=== PATIENT | male | born 1945 | race Caucasian/White ===

== ENCOUNTER → 2019-04-08 07:35 | Outpatient (CLI) | payer MEDICARE, OTHER, SELFPAY ==
--- NOTE | 2019-04-08 | DI.ECHO.S_ITS ---
[facility]---------+ [facility] +---------+ : : [address] : [address] [address] : : : : [id number] : : : : Phone: [phone]---------+ Echocardiogram Report + + :Name: RODOLFO BARNETT Study Date: 04/08/2019 Height: 72 in : :[facility] Weight: 238 lb : : Gender: Male BSA: 2.3 m2 : :: 1945 Age: 73 yrs BP: 150/80 mmHg: :Reason For Study: CAD : : Performed By: Radha Kumar : :Referring: SRINI PALACIOS : + + Interpretation Summary 1) Normal left ventricular size and thickness with low normal systolic function (EF 50-55%). 2) The mid to apical anteroseptum, the apical inferoseptum, and the apex are akinetic. 3) No significant valvular abnormalities. 4) Compared to the Echo done 02/04/2009, LVEF has improved from 45% to 50-55% on this study. Procedure: A two-dimensional transthoracic echocardiogram with color flow and Doppler was performed. The study quality was technically difficult. Comparison is made with the echocardiogram of 02-04-09. A contrast injection of Definity was performed to improve assessment of LV function. The patient was in normal sinus rhythm during the exam. Left Ventricle: There is normal left ventricular wall thickness. The left ventricle is normal in size. Proximal septal thickening is noted. The ejection fraction is estimated to be 50-55%. The mid to apical anteroseptum, the apical inferoseptum, and the apex are akinetic. Right Ventricle: The right ventricle grossly appears normal in size with probable normal systolic function. Atria: The left atrial size is normal. Right atrial size is normal. The interatrial septum is intact with no evidence for an atrial septal defect. Mitral Valve: The mitral valve is normal in structure and function. There is no mitral regurgitation noted. Aortic Valve: The aortic valve opens well. There is no aortic valve stenosis. No aortic regurgitation is present. Tricuspid Valve: The tricuspid valve is normal in structure and function. There is a trace or physiologic amount of tricuspid regurgitation. Pulmonic Valve: The pulmonic valve is not well visualized. Great Vessels: The aortic root is normal size. The ascending aorta is at the upper limits of normal in size. The aortic arch is normal in size. Inspiratory collapse cannot be assessed because of mechanical ventilation, thus CVP cannot be estimated.. Pericardium/ Pleura There is no pericardial effusion. There is no pleural effusion. MMode/2D Measurements & Calculations LVIDd: 6.0 cm Ao root diam: 3.9 cm LVIDs: 3.9 cm Aortic Jxn: 3.1 cm FS: 34.1 % asc Aorta Diam: 3.7 cm IVSd: 1.1 cm Ao Arch Diam (Prox Trans): 2.7 cm LVPWd: 0.90 cm LV fernández. diameter/BSA (cm/m^2): 2.6 LV sys. diameter/BSA (cm/m^2): 1.7 LA dimension: 5.0 cm RA long axis: 5.3 cm LA A2 area: 18.5 cm2 RA area: 18.8 cm2 LA A4 area: 19.0 cm2 RA vol: 56.9 ml LA length (vol): 4.8 cm RA : 24.8 ml/m2 LA vol: 61.7 ml IVC diam: 1.3 cm LA vol index: 26.9 ml/m2 Doppler Measurements & Calculations Ao V2 max: 117.2 cm/sec MV E max doug: 62.3 cm/sec Ao V2 mean: 81.1 cm/sec MV A max doug: 96.0 cm/sec Ao max P.5 mmHg MV E/A: 0.65 Ao mean P.0 mmHg Med Peak E' Doug: 5.8 cm/sec Ao V2 VTI: 24.7 cm E/E' med: 10.8 Lat Peak E' Doug: 7.9 cm/sec E/E' lat: 7.9 E/e' average: 9.3 MV dec time: 0.15 sec MV P1/2t: 44.5 msec MV P1/2t max doug: 62.6 cm/sec MVA(P1/2t): 4.9 cm2 Reading Physician:10:42 AM
--- NOTE | 2019-04-08 14:50 | PM.TREADMILL ---
Cardiac Stress Test Report Referral & Results Date Patient Seen: 04/08/19 Requesting provider: Martin Palacios Indication: Dyspnea Rest ECG: Unremarkable, possible small Q-waves inferior leads Procedure Note: Today following both written and verbal informed consent the patient was exercised according to a standard Jonas protocol patient went for a total of 4 minutes 24 seconds achieving a maximum heart rate of 150 to maximum systolic blood pressure of 160. This is approximately 7.0 METS. Exercise was terminated at this point because of 4+ dyspnea. Patient was also given Cardiolite through a previously started Hep-Lock IV by the diagnostic imaging staff approximately 1 minute prior to the cessation of exercise. No ST-T segment changes identified Patient was quickly tachycardic with any exertion, blood pressure peak was normal Functional aerobic impairment rates about 25% sedentary scale Impression: No ischemic changes Tachycardia Limited exercise capacity as above Please see perfusion imaging report as well Please note: Actual ECG tracings can be found in the PACS system.
--- NOTE | 2019-04-08 17:53 | DI.NM.S_ITS ---
DATE OF SERVICE: 04/08/2019 PROCEDURE PERFORMED: Exercise treadmill stress and rest myocardial perfusion imaging study with gating to assess ejection fraction and regional wall motion performed using a 1-day protocol.. 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 EXERCISE TREADMILL TESTING: The patient was able to exercise for 4 minutes 24 seconds on a standard Jonas protocol suggesting moderate-severely reduced exercise capacity with an SANDY of +30%. He had an accelerated heart rate response to exercise with a resting heart rate of 97 bpm, increasing to a 135 bpm after 1 minute of exercise and achieving a maximum heart rate of 152 bpm (105% of his predicted maximum). He had a normal blood pressure response. He had no reported angina. His resting ECG shows evidence of a probable anterior NM but ST segments are relatively normal. There are no significant ischemic changes with stress. He had occasional isolated PVCs but no complex ventricular ectopy with exercise. At 3 minutes 15 seconds of exercise, at heart rate of 150 bpm, 25.6 mCi of technetium-99 Myoview was injected and he was subsequently imaged a gated SPECT protocol. He had previously been injected with 13.7 mCi of technetium 99 Myoview while at rest, and imaged 30 minutes after that injection, again using a gated SPECT acquisition protocol. FINDINGS: 1. Raw Data: There is fair myocardial tracer uptake. The lung/heart ratio is normal at 0.31. TID ratio is normal at 1.1. 2. Quantitative Gated SPECT: Post stress ejection fraction is estimated at 61%. There is severe hypokinesis to akinesis at the apex, particularly in the distal lateral apex but no other obvious focal wall motion abnormality. Resting ejection fraction is 58% with an identical contraction pattern. Resting end- diastolic volume is borderline increased at 147 mL. 3. Myocardial Perfusion Imaging: Post stress supine images are of marginal quality but suggest a moderate perfusion defect in the very distal anterior wall, anterolateral wall, with a more dense defect in the inferolateral wall extending to the apex. This defect appears to persist on the prone images. The resting images show an identical perfusion pattern without any clear improvement in this defect. IMPRESSION: 1. Abnormal myocardial perfusion study. 2. [id number] sized severe fixed perfusion defect in the distal lateral and inferolateral segment, extending into the distal anterior wall and periapical segments but without any clear reversibility. This would be consistent with a probable transmural infarction without any significant ischemia. 3. Preserved left ventricular systolic function but with a focal wall motion abnormality in the distribution of the defect described above. Left ventricular volumes appear to be borderline increased. 4. Moderate - severely reduced exercise capacity with an accelerated heart rate response to exercise, suggesting reduced cardiovascular fitness. There were isolated PVCs but no complex ventricular ectopy. 5. Compared to the previous myocardial perfusion study 01/13/2019, an identical perfusion pattern is seen with a fairly dense distal anteroapical and lateral defect. His post stress ejection fraction then was 43% with an end- diastolic volume of 173 mL suggesting some improvement. Otherwise, there has been no significant change. Sergey Hameed - JAREN/caron/ doc#: [id number]/job#: [id number] dd: 04/08/2019 16:50:00 dt: 04/08/2019 17:35:00 DICTATING MD/COPIES TO: Giovanni Gallagher MD; Martin Palacios MD; Nayeli Olmstead PA-C COPIES MNE: SHARATH BAUTISTA
== END ==
PROVIDERS: PCP Student in an Organized Health Care Education/Training Program; Visit Provider Internal Medicine Cardiovascular Disease
DX: Z02.4 Encounter for examination for driving license (principal); I25.10 Atherosclerotic heart disease of native coronary artery without angina pectoris; I25.2 Old myocardial infarction; R94.39 Abnormal result of other cardiovascular function study; R06.09 Other forms of dyspnea; R00.0 Tachycardia, unspecified; Z95.1 Presence of aortocoronary bypass graft
CPT/HCPCS: 78452; 93016; 93017; 93018; 93306; A9502; Q9957

== ENCOUNTER → 2020-12-03 14:59 | Outpatient (ROUT) | payer MEDICARE, OTHER, SELFPAY ==
[2020-12-03 15:48] LABS: Add Manual Diff / Slide Review NO; Basophils Absolute Auto 100 /uL (0-100); Basophils Percent Auto 0.8 % (0-2); Eosinophils Absolute Auto 400 /uL (0-450); Eosinophils Percent Auto 4.4 % (2-4); Hematocrit 41.4 % (41-53); Hemoglobin 13.9 g/dL (13.5-17.5); Lymphocytes Absolute Auto 3500 /uL (1100-4500); Lymphocytes Percent Auto 34.4 % (25-40); Mean Corpuscular HGB Conc 33.6 % (30-36); Mean Corpuscular Hemoglobin 31.2 PG (26-34); Mean Corpuscular Volume 92.7 fL (80-100); Monocytes Absolute Auto 900 /uL (0-900); Monocytes Percent Auto 8.5 % (3-14); Neutrophils Absolute Auto 5300 /uL (1500-7000); Neutrophils Percent Auto 51.9 % (50-75); Platelet Count 201 X10^3/uL (150-400); Red Blood Cell Count 4.47 X10^6/uL (4.5-5.9); Red Cell Distribution Width 13.3 % (11.6-14.8); White Blood Cell Count 10.2 X10^3/uL (4.5-11.0)
[2020-12-03 16:27] LABS: Alanine Aminotransferase 16 IU/L (<50); Albumin 3.9 g/dL (3.5-5.0); Albumin Globulin Ratio 1.3 (1.0-2.8); Alkaline Phosphatase 88 U/L (38-126); Aspartate Aminotransferase 29 IU/L (17-59); Bilirubin Total 0.3 mg/dL (0.2-1.3); Blood Urea Nitrogen 15 mg/dL (9-20); Calcium 9.4 mg/dL (8.4-10.2); Carbon Dioxide 31 mmol/L (22-32); Chloride 100 mmol/L (98-107); Cholesterol 109 mg/dL (140-199); Estimated Glomerular Filt Rate > 60.0 mL/min (>60); Globulin 3.1 g/dL (1.7-4.1); Glucose 143 mg/dL (80-110); HDL Cholesterol 48 mg/dL (40-60); HEMOLYSIS 21 (0-50); LDL Cholesterol Calculated 37 mg/dL (<100); Potassium 4.4 mmol/L (3.4-5.1); Sodium 137 mmol/L (137-145); Triglycerides 121 mg/dL (35-150)
[2020-12-03 16:34] LABS: Hemoglobin A1C% w Est Avg Glu 6.9 % (4.0-6.0)
== END ==
PROVIDERS: PCP Student in an Organized Health Care Education/Training Program; Visit Provider Student in an Organized Health Care Education/Training Program
DX: I10 Essential (primary) hypertension (principal); E78.2 Mixed hyperlipidemia; E11.40 Type 2 diabetes mellitus with diabetic neuropathy, unspecified
CPT/HCPCS: 80053; 80061; 83036; 85025

== ENCOUNTER → 2025-05-02 13:58 | Outpatient (CLI) | payer MEDICARE, OTHER, SELFPAY ==
--- NOTE | 2025-05-02 14:05 | DI.CT.S_ITS ---
PROCEDURE: CT CHEST WO CON
== END ==
LOC: CT 14:03
PROVIDERS: PCP Student in an Organized Health Care Education/Training Program; Referring Provider Internal Medicine Critical Care Medicine; Visit Provider Internal Medicine Critical Care Medicine
DX: J84.9 Interstitial pulmonary disease, unspecified (principal); I51.7 Cardiomegaly; R91.8 Other nonspecific abnormal finding of lung field; K44.9 Diaphragmatic hernia without obstruction or gangrene; I27.20 Pulmonary hypertension, unspecified; Z95.1 Presence of aortocoronary bypass graft
CPT/HCPCS: 71250

== ENCOUNTER → 2025-05-26 14:35 | Outpatient (CLI) | payer MEDICARE, OTHER, SELFPAY | LOC: RESP 14:36 | PROVIDERS: PCP Student in an Organized Health Care Education/Training Program; Referring Provider Internal Medicine Critical Care Medicine; Visit Provider Internal Medicine Critical Care Medicine | DX: R06.09 Other forms of dyspnea (principal); Z87.891 Personal history of nicotine dependence; R94.2 Abnormal results of pulmonary function studies | CPT/HCPCS: 94060; 94726; 94729 ==